=== PATIENT | female | born 1945 | race Caucasian/White ===

== ENCOUNTER → 2017-02-13 | Outpatient (CLI) | payer OTHER ==
[2015-06-10 22:05] VITALS: BP 121/69
--- NOTE | 2017-02-13 18:48 | VAS ---
HISTORY: Left lower extremity pain. Study: Left lower extremity duplex venous ultrasound. Comparison: None. TECHNIQUE: Multiple thomas scale and color flow Doppler images of the deep venous system were obtaine d of the left lower extremity. FINDINGS: The deep venous system of the left lower extremity was evaluated from the level of the common femora l vein through the popliteal vein. Normal color flow and augmentation can be observed. In addition , normal compression is seen throughout the deep venous system. IMPRESSION: Negative for left lower extremity DVT. Reported By:
--- NOTE | 2017-02-14 06:44 | RAD ---
HISTORY: Right shoulder pain, nontraumatic Study: Right shoulder three view Comparison: None Findings: The clavicle is intact. There is some AC joint degenerative joint disease present. The glenohumeral articulation is normal in its appearance. No acute cortical disruption or dislocation can be ident ified. The visualized portions of the scapula are unremarkable. In addition, the visualized portio ns of the right hemithorax appear normal. IMPRESSION: AC joint degenerative joint disease Reported By:
== END ==
LOC: LAB 16:22
PROVIDERS: ATTEND Nurse Practitioner Family
DX: L03.818 Cellulitis of other sites (principal); L02.818 Cutaneous abscess of other sites; M79.605 Pain in left leg; M25.511 Pain in right shoulder
CPT/HCPCS: 73030; 87070; 87075; 93971

== ENCOUNTER 2017-02-16 09:13 | Day surgery (SDC) | payer OTHER ==
[2017-02-16] MEDS ORDERED: D5 LR 1000 ML 1,000 ML IV ONE (09:38)
[2017-02-16] MEDS ORDERED: DIPRIVAN VIAL 20 ML ONE (10:52)
[2017-02-16 12:01] VITALS: BP 130/63
== END 2017-02-16 11:35 | disposition home or self-care (01) ==
LOC: SURG1 09:13
PROVIDERS: ATTEND Internal Medicine Gastroenterology
PROC: 0DB68ZX Excision of Stomach, Via Natural or Artificial Opening Endoscopic, Diagnostic (ICD-10-PCS; principal; 2017-02-16 12:00)
PROC: 0DJ08ZZ Inspection of Upper Intestinal Tract, Via Natural or Artificial Opening Endoscopic (ICD-10-PCS; principal; 2017-02-16 12:00)
PROC: 0DB88ZX Excision of Small Intestine, Via Natural or Artificial Opening Endoscopic, Diagnostic (ICD-10-PCS; principal; 2017-02-16 12:00)
PROC: 0D757ZZ Dilation of Esophagus, Via Natural or Artificial Opening (ICD-10-PCS; principal; 2017-02-16 12:00)
DX: R13.19 Other dysphagia (principal); R10.13 Epigastric pain; R11.0 Nausea; K21.9 Gastro-esophageal reflux disease without esophagitis; K20.8 Other esophagitis; K22.4 Dyskinesia of esophagus; K22.2 Esophageal obstruction; K29.60 Other gastritis without bleeding
CPT/HCPCS: A4217; J3490; J7120

== ENCOUNTER → 2017-02-17 | Outpatient (CLI) | payer OTHER ==
[2017-02-16 12:01] VITALS: BP 130/63
== END ==
LOC: LAB 12:20
PROVIDERS: ATTEND Nurse Practitioner Family
DX: Z12.11 Encounter for screening for malignant neoplasm of colon (principal)
CPT/HCPCS: 82270; 87045; 87338; 87427; 87899

== ENCOUNTER → 2017-06-08 | Outpatient (CLI) | payer OTHER ==
[2017-06-08 18:36] LABS: C-REACTIVE PROTEIN < 0.50 mg/L (0-3.0)
[2017-06-08 19:39] LABS: RHEUMATOID FACTOR NEGATIVE (NEGATIVE)
[2017-06-12 07:46] LABS: ANTI-NUCLEAR ANTIBODY TEST None Detected (None Detected)
== END ==
LOC: LAB 17:45
PROVIDERS: ATTEND Nurse Practitioner Family
DX: I49.8 Other specified cardiac arrhythmias (principal); M25.50 Pain in unspecified joint; G89.29 Other chronic pain; D72.819 Decreased white blood cell count, unspecified
CPT/HCPCS: 36415; 84443; 85652; 86140; 86308; 86430

== ENCOUNTER 2018-02-15 08:50 | Day surgery (SDC) | payer OTHER ==
[2018-02-15] MEDS ORDERED: D5 LR 1000 ML 1,000 ML IV ONE (08:59)
[2018-02-15] MEDS ORDERED: DIPRIVAN VIAL 20 ML ONE (10:59)
[2018-02-15 11:50] VITALS: BP 140/68
== END 2018-02-15 11:55 | disposition home or self-care (01) ==
LOC: SURG1 08:50
PROVIDERS: ATTEND Internal Medicine Gastroenterology
PROC: 0DBN8ZX Excision of Sigmoid Colon, Via Natural or Artificial Opening Endoscopic, Diagnostic (ICD-10-PCS; principal; 2018-02-15 12:00)
PROC: 0DBE8ZX Excision of Large Intestine, Via Natural or Artificial Opening Endoscopic, Diagnostic (ICD-10-PCS; principal; 2018-02-15 12:00)
PROC: 0DJD8ZZ Inspection of Lower Intestinal Tract, Via Natural or Artificial Opening Endoscopic (ICD-10-PCS; principal; 2018-02-15 12:00)
DX: R19.4 Change in bowel habit (principal); R63.4 Abnormal weight loss; K63.5 Polyp of colon; K57.30 Diverticulosis of large intestine without perforation or abscess without bleeding; K64.0 First degree hemorrhoids; Z86.010 Personal history of colon polyps
CPT/HCPCS: 99100; A4217; J3490; J7120